=== PATIENT | female | born 1990 | race Caucasian/White ===

== ENCOUNTER 2019-10-03 21:59 | Inpatient (IN) ==
[2019-10-03] MEDS ORDERED: MEPERIDINE 50 MG/1 ML VIAL IV PRN (22:24)
[2019-10-03] MEDS ORDERED: BUTORPHANOL 2 MG/ML VIAL IV PRN (22:24)
[2019-10-03] MEDS ORDERED: ONDANSETRON 4 MG/2 ML VIAL IV PRN (22:24)
[2019-10-03 22:42] LABS: Basophils % 0.2 % (0.0-0.8); Eosinophils # 0.1 10*3/uL (0.0-0.87); Eosinophils % 1.1 % (0.00-10.9); Hematocrit 38.2 VOL% (35.7-47.0); Hemoglobin 13.2 GM/DL (12.0-16.0); Immature Granulocytes % 0.8 %; Lymphocytes # 1.8 10*3/uL (1.4-4.0); Lymphocytes % 13.9 % (21.3-54.2); Mean Corpuscular HGB Conc 34.6 GM/DL (32-36); Mean Platelet Volume 11.1 FL (9.6-12.0); Monocytes % 6.5 % (1.7-12.7); Neutrophils % 77.5 % (38.7-73.9); Platelet Count 177 T/CUMM (130-400); Red Blood Count 3.98 MC/CUMM (3.8-5.5); Red Cell Distribution Width 13.4 % (9.3-17.3)
[2019-10-03 23:00] LABS: Albumin 2.8 G/DL (3.4-5.0); Bilirubin,Total 0.4 MG/DL (0.2-1.0); Calcium 9.4 MG/DL (8.5-10.1); Osmolality,Calculated 263.4 MOS/KG (273-304); Total Protein 6.5 G/DL (6.4-8.3)
[2019-10-04] MEDS ORDERED: hydrOXYzine HCL 25 MG/1 ML VIAL IM PRN (15:40)
[2019-10-04] MEDS ORDERED: FAMOTIDINE 20 MG/2 ML VIAL IV ONE (15:40)
[2019-10-04] MEDS ORDERED: PROMETHAZINE 25 MG/1 ML VIAL IM ONE (15:40)
[2019-10-04] MEDS ORDERED: NALOXONE 0.4 MG/ML VIAL IV PRN (15:40)
[2019-10-04] MEDS ORDERED: ONDANSETRON 4 MG/2 ML VIAL IV ONE (15:40)
[2019-10-04] MEDS ORDERED: ePHEDrine 50 MG/ML AMP IV PRN (15:40)
[2019-10-04] MEDS ORDERED: diphenhydrAMINE 50 MG/1 ML VIAL IV PRN ×2 (15:40)
[2019-10-04] MEDS ORDERED: CITRIC ACID/SODIUM CITRATE 30 ML UDCUP PO ONE (15:40)
[2019-10-04] MEDS: LACTATED RINGERS 1,000 ML IV PRN ×2 (15:48→16:50)
[2019-10-04] MEDS ORDERED: fentaNYL 2 MCG/ROPIV 0.2% EPID 100 ML EPIDURAL SCH (16:00)
[2019-10-04] MEDS ORDERED: OXYTOCIN/LR 20 UNIT/1,000 ML BAG IV SCH (17:00)
[2019-10-04] MEDS ORDERED: miSOPROStoL 200 MCG TABLET ONE (19:55)
[2019-10-04] MEDS ORDERED: METHYLERGONOVINE 0.2 MG/1 ML AMP ONE (19:56)
[2019-10-04] MEDS ORDERED: CARBOPROST TROMETHAMINE 250 MCG/ML AMP IM ONE (19:56)
[2019-10-04] MEDS ORDERED: LIDOCAINE 1% 50 ML VIAL ONE (19:57)
[2019-10-04] MEDS ORDERED: RHO(D) IMMUNE GLOBULIN 300 MCG SYRINGE IM ONE (21:08)
[2019-10-04] MEDS ORDERED: MEASLES/MUMPS/RUBELLA VACCINE 0.5 ML VIAL SUBCUT ONE (21:08)
[2019-10-04] MEDS ORDERED: BISACODYL 10 MG SUPP RECTAL PRN (21:08)
[2019-10-04] MEDS ORDERED: DIPH/TET/ACEL PERT BOOSTER VACCINE 0.5 ML VIAL IM ONE (21:08)
[2019-10-04] MEDS ORDERED: LANOLIN 50% CREAM 0.3 OZ TUBE TOP PRN (21:08)
[2019-10-04] MEDS ORDERED: ONDANSETRON 4 MG/2 ML VIAL IV PRN (21:08)
[2019-10-04] MEDS ORDERED: WITCH HAZEL PADS 100/JAR TOP PRN (21:08)
[2019-10-04] MEDS ORDERED: OXYTOCIN/LR 20 UNIT/1,000 ML BAG IV ONE (21:08)
[2019-10-04] MEDS ORDERED: oxyCODONE/ACETAMINOPHEN 5-325 MG TABLET PO PRN ×2 (21:08)
[2019-10-04] MEDS ORDERED: ACETAMINOPHEN 325 MG TABLET PO PRN (21:08)
[2019-10-04] MEDS ORDERED: HYDROCORTISONE 2.5% RECTAL CREAM 30 GM TUBE TOP PRN (21:08)
[2019-10-04] MEDS ORDERED: BENZOCAINE 20%/MENTHOL 0.5% SPRAY 56 GM CAN TOP PRN (21:08)
[2019-10-04] MEDS ORDERED: miSOPROStoL 200 MCG TABLET RECTAL ONE (21:12)
[2019-10-05] MEDS: IBUPROFEN 800 MG TABLET PO PRN ×3 (03:38→21:49)
[2019-10-05 05:49] LABS: Basophils % 0.1 % (0.0-0.8); Eosinophils % 0.1 % (0.00-10.9); Hematocrit 31.8 VOL% (35.7-47.0); Immature Granulocytes % 0.6 %; Lymphocytes # 1.2 10*3/uL (1.4-4.0); Lymphocytes % 6.9 % (21.3-54.2); Mean Corpuscular HGB Conc 33.3 GM/DL (32-36); Mean Corpuscular Volume 97.8 FL (87-102); Mean Platelet Volume 11.5 FL (9.6-12.0); Monocytes % 5.6 % (1.7-12.7); Neutrophils % 86.7 % (38.7-73.9); Platelet Count 156 T/CUMM (130-400); Red Blood Count 3.25 MC/CUMM (3.8-5.5); Red Cell Distribution Width 13.7 % (9.3-17.3); White Blood Count 17.1 T/CUMM (4-12)
[2019-10-05 05:57] LABS: Hemoglobin 10.6 GM/DL (12.0-16.0)
[2019-10-05] MEDS: DOCUSATE SODIUM 100 MG CAPSULE PO SCH ×2 (09:59→21:41)
[2019-10-06 09:44] VITALS: BP 114/70
[2019-10-06] MEDS: DOCUSATE SODIUM 100 MG CAPSULE PO SCH (12:30)
== END 2019-10-06 14:30 | disposition home or self-care (01) | DRG 807 ==
LOC: N.LD 21:59 → N.OB 10-05 00:29
PROVIDERS: ADMIT Specialist; ATTEND Specialist